=== PATIENT | female | born 1950 | race Caucasian/White ===

== ENCOUNTER 2023-09-20 11:40 | Emergency (ER) | payer MEDICARE, BC ==
[~2023-09-20] VITALS: Ht 152.4 cm; Wt 45.5 kg
[2023-09-20 11:46] VITALS: BP 173/74; TEMP 98.2
[2023-09-20 15:35] VITALS: PULSE 88
== END 2023-09-20 15:35 | disposition home or self-care (01) ==
LOC: COL.ER 11:40
DX: M25.551 Pain in right hip (principal)